=== PATIENT | male | born 1955 | race Caucasian/White ===

== ENCOUNTER 2025-04-29 11:24 | Emergency (ER) | payer MEDICARE ==
--- NOTE | 2025-04-29 12:31 | ED ---
General Adult HPI - General Chief complaint: Recheck/Abnormal Lab/Rx Stated complaint: Fall-AMS,Dizziness Time Seen by Provider: 04/29/25 11:59 Source: patient Mode of arrival: ambulatory Limitations: no limitations - History of Present Illness Initial comments: Patient is a 69-year-old gentleman past medical history CAD presenting today for generalized weakness. Patient states that [place] on [place] and states he was out in the heat all day without drinking water from Friday to Friday. He began having shaking chills that evening and has had persistent intermittent fevers and chills. He endorses a ssociated generalized weakness. Yesterday Tmax was 102 degrees. He tried to take a cool bath and as his tried to help him out of the bath he required a significant amount of assistance getting out. States he did have 1 fall to the side due to difficulty with balance but did not hit his head. He is currently on Plavix. States also on a cholesterol medication no other medications. Did not take any Tylenol or ibuprofen prior to arrival. Also endorses urine incontinence. Typically has urinary urgency but has never been incontinent before. States earlier today he felt he need to urinate as soon as he got up he lost control of his bladder. He denies any new back injuries or back pain. Denies chest pain or shortness of breath. Endorses a chronic cough but denies any sputum production or hemoptysis. Denies sore throat or nasal congestion. States he has had darkening urine. Denies chest or abdominal pain. Denies changes in vision, focal numbness or weakness, slurred speech or difficulty swallowing. Endorses morning headaches and dizziness over the last 4 days but states these only headaches he has had in the past. Dizziness is described as difficulty with balance. Last night states he had what he would describe hallucinations, stating while he was sitting in the dark he saw someone walking across the room. Denies history of family disorder. - Related Data Home Medications Medication Instructions Recorded Confirmed ALPRAZolam [Xanax] 0.5 mg PO DAILY PRN 04/29/25 04/29/25 Clopidogrel [Plavix] 75 mg PO DAILY 04/29/25 04/29/25 DULoxetine HCL [Cymbalta] 60 mg PO DAILY 04/29/25 04/29/25 Fluticasone Furoate [Arnuity 1 puff INHALATION RT-DAILY 04/29/25 04/29/25 Ellipta] Rosuvastatin Calcium [Crestor] 40 mg PO DAILY 04/29/25 04/29/25 Previous Rx's Medication Instructions Recorded hydrOXYzine HCL 25 mg PO HS PRN #3 tab 04/29/25 Allergies Allergy/AdvReac Type Severity Reaction Status Date / Time No Known Allergies Allergy Verified 04/29/25 15:25 Review of Systems ROS Statement: Those systems with pertinent positive or pertinent negative responses have been documented in the HPI. ROS Other: All systems not noted in ROS Statement are negative. Past Medical History Past Medical History: Hyperlipidemia Past Surgical History: Heart Catheterization With Stent Past Psychological History: Anxiety, Depression Smoking Status: Never smoker Past Alcohol Use History: Rare Past Drug Use History: None Reported General Exam - General Exam Comments Initial Comments: PE: CONSTITUTIONAL: [no apparent distress, well appearing] SKIN: [warm, dry, no jaundice, hives or petechiae] EYES:[ pupils are equally round, extraocular movements intact without nystagmus, clear conjunctiva, non-icteric sclera] HENT: [normocephalic, atraumatic, moist mucus membranes, oropharynx clear without exudates, tympanic membranes pearly capone, no lymphadenopathy] NECK: , [Full range of motion, normal appearance] PULMONARY: [clear to auscultation without wheezes, rhonchi, or rales, normal excursion, no accessory muscle use and no stridor] CARDIOVASCULAR:[ regular rate, rhythm, normal S1 and S2. No appreciated murmurs, rubs or gallops. Strong radial pulses with intact distal perfusion. No lower extremity edema] GASTROINTESTINAL: [soft, active bowel sounds throughout, non-tender, non- distended, no palpable masses, no rebound or guarding. No hepatosplenomegaly] GENITOURINARY: MUSCULOSKELETAL: [Extremities have no gross deformity, no edema, redness, or swelling. No calf swelling ] NEUROLOGIC: [_a/o x 3, GCS 15, normal mentation and speech. Moves all extrem ities x 4 without motor or sensory deficit], cranial nerves: II (visual gilbert without defects), III, IV and (extraocular movements are intact, pupils are equal with normal reaction to light), V (intact facial sensation and jaw opening), VII (no facial droop), IX and X (normal palate movement, midline uvula, normal voice), XI (symmetrical shoulder shrug and lateral head rotation against resistance), XII (midline tongue protrusion). Motor strength is 5/5 in all extremities. No abnormal movements. Normal muscle tone. Sensation to light touch is intact bilaterally. No cerebellar signs ([id number], [id number], and rapid alternating movements are normal) PSYCHIATRIC:[ _normal mood and affect, thought process is clear and linear] Limitations: no limitations Course Vital Signs 04/29/25 04/29/25 04/29/25 11:35 12:36 13:51 Temperature 98.5 F 100.3 F H 99 F Pulse Rate 95 78 Respiratory 22 20 Rate Blood Pressure 152/91 140/93 O2 Sat by Pulse 98 95 Oximetry 04/29/25 04/29/25 04/29/25 15:34 17:08 18:34 Temperature 98.6 F 100 F H Pulse Rate 73 76 Respiratory 18 18 Rate Blood Pressure 135/75 145/86 O2 Sat by Pulse 95 99 Oximetry 04/29/25 04/29/25 04/29/25 19:10 19:57 20:38 Temperature 98.8 F 100.5 F H Pulse Rate 111 H Respiratory 18 Rate Blood Pressure 154/78 O2 Sat by Pulse 93 L 97 Oximetry 04/29/25 20:48 Temperature 97.8 F Pulse Rate 77 Respiratory 17 Rate Blood Pressure 129/88 O2 Sat by Pulse 97 Oximetry EKG Findings - EKG Comments: EKG Findings:: Sinus rhythm, rate 90 bpm, intervals within acceptable limits, borderline left axis deviation, no significant ST elevations or depressions, no arrhythmia Medical Decision Making - Medical Decision Making Was pt. sent in by a medical professional or institution (, PA, GLOVE PRINTER, urgent care, hospital, or senior living...) When possible be specific @ -[No] Did you speak to anyone other than the patient for history (EMS, parent, family, police, friend...)? What history was obtained from this source @ -[No] Did you review nursing and triage notes (agree or disagree)? Why? @ -[I reviewed nursing and triage notes] Were old charts reviewed (outside hosp., previous admission, EMS record, old EKG, old radiological studies, urgent care reports/EKG's, senior living records)? Report findings @ -[Medical records reviewed] Differential Diagnosis (chest pain, altered mental status, abdominal pain women, abdominal pain men, vaginal bleeding, weakness, fever, dyspnea, syncope, headache, dizziness, GI bleed, back pain, seizure, CVA, palpatations, mental health, musculoskeletal)? @ -[not applicable] EKG interpreted by me (3pts min.). @ -[As above] X-rays interpreted by me (1pt min.). @ -[None done] CT interpreted by me (1pt min.). @ -[None done] U/S interpreted by me (1pt. min.). @ -[None done] What testing was considered but not performed or refused? (CT, X-rays, U/S, labs)? Why? @ -[None] What meds were considered but not given or refused? Why? @ -[None] Did you discuss the management of the patient with other professionals (professionals i.e. , PA, GLOVE PRINTER, lab, RT, psych nurse, social director, senior application security consultant, teacher, commercial loan officer, caser)? Give summary @ -[No] Was smoking cessation discussed for >3mins.? @ -[No] Was critical care preformed (if so, how long)? @ -[No] Were there social determinants of health that impacted care today? How? (Homelessness, low income, unemployed, alcoholism, drug addiction, pryor sportation, low edu. Level, literacy, decrease access to med. care, penitentiary, rehab)? @ -[No] Was there de-escalation of care discussed even if they declined (Discuss DNR or withdrawal of care, Hospice)? @ -[No] What co-morbidities impacted this encounter? (DM, HTN, Smoking, COPD, CAD, Cancer, CVA, ARF, Chemo, Hep., AIDS, mental health diagnosis, sleep apnea, morbid obesity)? @CAD Was patient admitted / discharged? Hospital course, mention meds given and route, prescriptions, significant lab abnormalities, going to OR and other pertinent info. @ -[hospital course] patient is a 69-year-old gentleman with a past medical history of CAD presenting today for generalized weakness, fevers, headaches, dizziness for 4 days after working out in the sun for 2 days without much water intake.Vital signs on arrival show an oral temp of 98.5 degrees, rate 95, respiratory rate 22, blood pressure 150/91 pulse ox 98%. On my assessment I did repeat an oral temperature which was 100.3 degrees. Otherwise physical exam unremarkable. No focal neurologic deficits and no cerebellar signs. Will obtain CT brain, sepsis workup, administer Rocephin out of concern that source could potentially be urine, CK, troponin, magnesium, Phos, TSH and Cepheid panel. Patient will receive 1 L IV fluids and Tylenol. Labs were initially markable for mild elevation in AST/ALT, no elevation in T. bili. He has no right upper quadrant tenderness to palpation. CK 3-66. Troponin 0.028. Patient endorsed vast improvement in symptoms. I did discuss with him elevated CK, mild hyponatremia, unknown cause for fever and discussed plan for admission. Patient preferred discharge home. Ultimately we decided to give additional 8 L IV fluids and recheck labs. If labs continue to improve he will be discharged. Repeat labs showed mild improvement in LFTs, CK did downtrend. He has no PABLITO. On reassessment he did have return of his fever he will be given a dose of a small dose of Tylenol. He continues to wish to be d ischarged. Undiagnosed new problem with uncertain prognosis? @ -[No] Drug Therapy requiring intensive monitoring for toxicity (Heparin, Nitro, Insulin, Cardizem)? @ -[No] Were any procedures done? @ -[No] Diagnosis/symptom? @ -[default] Acute, or Chronic, or Acute on Chronic? @ -[default] Uncomplicated (without systemic symptoms) or Complicated (systemic symptoms)? @ -[default] Side effects of treatment? @ -[No] Exacerbation, Progression, or Severe Exacerbation? @ -[No] Poses a threat to life or bodily function? How? (Chest pain, [place], [place], pneumonia, PE, COPD, DKA, ARF, appy, cholecystitis, CVA, Diverticulitis, Homicidal, Suicidal, threat to staff... and all critical care pts) @ -[No] - Lab Data Result diagrams: 04/29/25 12:48 04/29/25 16:32 Lab Results 04/29/25 04/29/25 04/29/25 Range/Units 12:48 12:48 12:48 WBC 7.54 (4.50-10.00) 10*3/uL RBC 4.31 L (4.40-5.60) 10*6/uL Hgb 15.1 (13.0-17.0) g/dL Hct 40.7 (39.6-50.0) % MCV 94.4 (80.0-97.0) fL MCH 35.0 H (27.0-32.0) pg MCHC 37.1 H (32.0-37.0) g/dL Plt Count 106 L (140-440) 10*3/uL MPV 9.5 (9.5-12.2) fL Immature Gran % (Auto) 0.3 % Neutrophils % 86.9 % Lymphocytes % 6.2 % Monocytes % 6.2 % Eosinophils % 0.0 % Basophils % 0.4 % Immature Gran # 0.02 (0.00-0.04) 10*3/uL Neutrophils # 6.55 (1.80-7.70) 10*3/uL Lymphocytes # 0.47 L (0.90-5.00) 10*3/uL Monocytes # 0.47 (0.20-1.00) 10*3/uL Eosinophils # 0.00 L (0.04-0.35) 10*3/uL Basophils # 0.03 (0.00-0.10) 10*3/uL PT 12.2 (10.0-12.5) sec INR 1.1 (<1.2) APTT 23.8 (22.0-30.0) sec Sodium 128 L (137-145) mmol/L Potassium 4.3 (3.5-5.1) mmol/L Chloride 95 L (98-107) mmol/L Carbon Dioxide 24 (22-30) mmol/L Anion Gap 9 mmol/L BUN 17 (9-20) mg/dL Creatinine 0.88 (0.66-1.25) mg/dL Est GFR (CKD-EPI)AfAm >90 (>60 ml/min/1.73 sqM) Est GFR (CKD-EPI)NonAf 88 (>60 ml/min/1.73 sqM) Glucose 121 H (74-99) mg/dL POC Glucose (mg/dL) (70-110) mg/dL POC Glu Dependency Counselor ID Plasma Lactic Acid Gino (0.7-2.0) mmol/L Calcium 8.6 (8.4-10.2) mg/dL Phosphorus 3.3 (2.5-4.5) mg/dL Magnesium 1.9 (1.6-2.3) mg/dL Total Bilirubin 1.3 (0.2-1.3) mg/dL AST 95 H (17-59) U/L ALT 68 H (4-49) U/L Alkaline Phosphatase 77 (38-126) U/L Creatine Kinase 366 H (55-170) U/L Troponin I (0.000-0.034) ng/mL Total Protein 6.8 (6.3-8.2) g/dL Albumin 4.2 (3.5-5.0) g/dL TSH 0.567 (0.465-4.680) mIU/L Urine Color Urine Appearance (Clear) Urine pH (5.0-8.0) Ur Specific [place] (1.001-1.035) Urine Protein (Negative) Urine Glucose (UA) (Negative) Urine Ketones (Negative) Urine Blood (Negative) Urine Nitrite (Negative) Urine Bilirubin (Negative) Urine Urobilinogen (<2.0) mg/dL Ur Leukocyte Esterase (Negative) Urine RBC (0-5) /hpf Urine WBC (0-5) /hpf Ur Squamous Epith Cells (0-4) /hpf Urine Mucus (None) /hpf Influenza Type A (PCR) (Not Detectd) Influenza Type B (PCR) (Not Detectd) RSV (PCR) (Not Detectd) SARS-CoV-2 (PCR) (Not Detectd) 04/29/25 04/29/25 04/29/25 Range/Units 12:48 12:48 12:48 WBC (4.50-10.00) 10*3/uL RBC (4.40-5.60) 10*6/uL Hgb (13.0-17.0) g/dL Hct (39.6-50.0) % MCV (80.0-97.0) fL MCH (27.0-32.0) pg MCHC (32.0-37.0) g/dL Plt Count (140-440) 10*3/uL MPV (9.5-12.2) fL Immature Gran % (Auto) % Neutrophils % % Lymphocytes % % Monocytes % % Eosinophils % % Basophils % % Immature Gran # (0.00-0.04) 10*3/uL Neutrophils # (1.80-7.70) 10*3/uL Lymphocytes # (0.90-5.00) 10*3/uL Monocytes # (0.20-1.00) 10*3/uL Eosinophils # (0.04-0.35) 10*3/uL Basophils # (0.00-0.10) 10*3/uL PT (10.0-12.5) sec INR (<1.2) APTT (22.0-30.0) sec Sodium (137-145) mmol/L Potassium (3.5-5.1) mmol/L Chloride (98-107) mmol/L Carbon Dioxide (22-30) mmol/L Anion Gap mmol/L BUN (9-20) mg/dL Creatinine (0.66-1.25) mg/dL Est GFR (CKD-EPI)AfAm (>60 ml/min/1.73 sqM) Est GFR (CKD-EPI)NonAf (>60 ml/min/1.73 sqM) Glucose (74-99) mg/dL POC Glucose (mg/dL) (70-110) mg/dL POC Glu Dependency Counselor ID Plasma Lactic Acid Gino 1.3 (0.7-2.0) mmol/L Calcium (8.4-10.2) mg/dL Phosphorus (2.5-4.5) mg/dL Magnesium (1.6-2.3) mg/dL Total Bilirubin (0.2-1.3) mg/dL AST (17-59) U/L ALT (4-49) U/L Alkaline Phosphatase (38-126) U/L Creatine Kinase (55-170) U/L Troponin I 0.028 (0.000-0.034) ng/mL Total Protein (6.3-8.2) g/dL Albumin (3.5-5.0) g/dL TSH (0.465-4.680) mIU/L Urine Color Urine Appearance (Clear) Urine pH (5.0-8.0) Ur Specific [place] (1.001-1.035) Urine Protein (Negative) Urine Glucose (UA) (Negative) Urine Ketones (Negative) Urine Blood (Negative) Urine Nitrite (Negative) Urine Bilirubin (Negative) Urine Urobilinogen (<2.0) mg/dL Ur Leukocyte Esterase (Negative) Urine RBC (0-5) /hpf Urine WBC (0-5) /hpf Ur Squamous Epith Cells (0-4) /hpf Urine Mucus (None) /hpf Influenza Type A (PCR) Not Detected (Not Detectd) Influenza Type B (PCR) Not Detected (Not Detectd) RSV (PCR) Not Detected (Not Detectd) SARS-CoV-2 (PCR) Not Detected (Not Detectd) 04/29/25 04/29/25 04/29/25 Range/Units 12:49 13:56 16:32 WBC (4.50-10.00) 10*3/uL RBC (4.40-5.60) 10*6/uL Hgb (13.0-17.0) g/dL Hct (39.6-50.0) % MCV (80.0-97.0) fL MCH (27.0-32.0) pg MCHC (32.0-37.0) g/dL Plt Count (140-440) 10*3/uL MPV (9.5-12.2) fL Immature Gran % (Auto) % Neutrophils % % Lymphocytes % % Monocytes % % Eosinophils % % Basophils % % Immature Gran # (0.00-0.04) 10*3/uL Neutrophils # (1.80-7.70) 10*3/uL Lymphocytes # (0.90-5.00) 10*3/uL Monocytes # (0.20-1.00) 10*3/uL Eosinophils # (0.04-0.35) 10*3/uL Basophils # (0.00-0.10) 10*3/uL PT (10.0-12.5) sec INR (<1.2) APTT (22.0-30.0) sec Sodium 135 L (137-145) mmol/L Potassium 3.6 (3.5-5.1) mmol/L Chloride 102 (98-107) mmol/L Carbon Dioxide 25 (22-30) mmol/L Anion Gap 8 mmol/L BUN 15 (9-20) mg/dL Creatinine 0.85 (0.66-1.25) mg/dL Est GFR (CKD-EPI)AfAm >90 (>60 ml/min/1.73 sqM) Est GFR (CKD-EPI)NonAf 89 (>60 ml/min/1.73 sqM) Glucose 119 H (74-99) mg/dL POC Glucose (mg/dL) 130 H (70-110) mg/dL POC Glu Dependency Counselor ID Arelis Fountain Plasma Lactic Acid Gino (0.7-2.0) mmol/L Calcium 8.2 L (8.4-10.2) mg/dL Phosphorus (2.5-4.5) mg/dL Magnesium (1.6-2.3) mg/dL Total Bilirubin 0.8 (0.2-1.3) mg/dL AST 84 H (17-59) U/L ALT 65 H (4-49) U/L Alkaline Phosphatase 70 (38-126) U/L Creatine Kinase (55-170) U/L Troponin I (0.000-0.034) ng/mL Total Protein 6.0 L (6.3-8.2) g/dL Albumin 3.6 (3.5-5.0) g/dL TSH (0.465-4.680) mIU/L Urine Color Light Yellow Urine Appearance Clear (Clear) Urine pH 6.0 (5.0-8.0) Ur Specific [place] 1.012 (1.001-1.035) Urine Protein Trace H (Negative) Urine Glucose (UA) Negative (Negative) Urine Ketones 1+ H (Negative) Urine Blood Small H (Negative) Urine Nitrite Negative (Negative) Urine Bilirubin Negative (Negative) Urine Urobilinogen <2.0 (<2.0) mg/dL Ur Leukocyte Esterase Negative (Negative) Urine RBC 2 (0-5) /hpf Urine WBC <1 (0-5) /hpf Ur Squamous Epith Cells <1 (0-4) /hpf Urine Mucus Rare H (None) /hpf Influenza Type A (PCR) (Not Detectd) Influenza Type B (PCR) (Not Detectd) RSV (PCR) (Not Detectd) SARS-CoV-2 (PCR) (Not Detectd) 04/29/25 04/29/25 Range/Units 16:32 16:32 WBC (4.50-10.00) 10*3/uL RBC (4.40-5.60) 10*6/uL Hgb (13.0-17.0) g/dL Hct (39.6-50.0) % MCV (80.0-97.0) fL MCH (27.0-32.0) pg MCHC (32.0-37.0) g/dL Plt Count (140-440) 10*3/uL MPV (9.5-12.2) fL Immature Gran % (Auto) % Neutrophils % % Lymphocytes % % Monocytes % % Eosinophils % % Basophils % % Immature Gran # (0.00-0.04) 10*3/uL Neutrophils # (1.80-7.70) 10*3/uL Lymphocytes # (0.90-5.00) 10*3/uL Monocytes # (0.20-1.00) 10*3/uL Eosinophils # (0.04-0.35) 10*3/uL Basophils # (0.00-0.10) 10*3/uL PT (10.0-12.5) sec INR (<1.2) APTT (22.0-30.0) sec Sodium (137-145) mmol/L Potassium (3.5-5.1) mmol/L Chloride (98-107) mmol/L Carbon Dioxide (22-30) mmol/L Anion Gap mmol/L BUN (9-20) mg/dL Creatinine (0.66-1.25) mg/dL Est GFR (CKD-EPI)AfAm (>60 ml/min/1.73 sqM) Est GFR (CKD-EPI)NonAf (>60 ml/min/1.73 sqM) Glucose (74-99) mg/dL POC Glucose (mg/dL) (70-110) mg/dL POC Glu Dependency Counselor ID Plasma Lactic Acid Gino (0.7-2.0) mmol/L Calcium (8.4-10.2) mg/dL Phosphorus (2.5-4.5) mg/dL Magnesium (1.6-2.3) mg/dL Total Bilirubin (0.2-1.3) mg/dL AST (17-59) U/L ALT (4-49) U/L Alkaline Phosphatase (38-126) U/L Creatine Kinase 305 H (55-170) U/L Troponin I 0.031 (0.000-0.034) ng/mL Total Protein (6.3-8.2) g/dL Albumin (3.5-5.0) g/dL TSH (0.465-4.680) mIU/L Urine Color Urine Appearance (Clear) Urine pH (5.0-8.0) Ur Specific [place] (1.001-1.035) Urine Protein (Negative) Urine Glucose (UA) (Negative) Urine Ketones (Negative) Urine Blood (Negative) Urine Nitrite (Negative) Urine Bilirubin (Negative) Urine Urobilinogen (<2.0) mg/dL Ur Leukocyte Esterase (Negative) Urine RBC (0-5) /hpf Urine WBC (0-5) /hpf Ur Squamous Epith Cells (0-4) /hpf Urine Mucus (None) /hpf Influenza Type A (PCR) (Not Detectd) Influenza Type B (PCR) (Not Detectd) RSV (PCR) (Not Detectd) SARS-CoV-2 (PCR) (Not Detectd) Disposition Clinical Impression: Fever, Dehydration, Elevated LFTs Disposition: HOME SELF-CARE Condition: Stable Instructions (If sedation given, give patient instructions): Acetaminophen (By mouth), Dehydration (ED), Fever in Adults (ED) Additional Instructions: Every disease is a spectrum and a small chance still exists that a serious condition could develop, for this reason, please monitor yourself closely for new, changing or worsening symptoms, symptoms that persist beyond 48 hours, fever beyond another 48 hours, return of symptoms or hallucinations, chest pain, difficulty in breathing, darkening urine, no urine output for greater than 9 hours, confusion inability to tolerate/keep down fluids or your medications, inability to follow up with outpatient providers as instructed and should you experience these symptoms or should you have any further concerns for your wellbeing please return to the ED or call 911 immediately. You may take 1000 mg of Tylenol every 6 hours as needed for fever. Please do not take greater than 4 doses or 4000 mg in 24 hours. You may trial provided hydroxyzine for difficulty sleeping. If this does not help your symptoms or makes them worse please stop taking. Please follow-up with your doctor as soon as possible, preferably within the next 1 to 3 days, if not within the next week for recheck of your urine and labs. PLEASE call your primary care physician as soon as possible to arrange / discuss plan for followup appointment. Appointment in the next 1-3 days is strongly encouraged if possible. PLEASE let us know here before you leave if there is anything further we can do to be of any assistance. Take care and feel Better! Prescriptions: hydrOXYzine HCL 25 mg PO HS PRN #3 tab PRN Reason: Insomnia Is patient prescribed a controlled substance at d/c from ED?: No Referrals: Nonstaff,Physician [Primary Care Provider] - 1-2 days
[2025-04-29] MEDS: LACTATED RINGERS 1,000 ML IV ONE (12:49)
[2025-04-29 12:50] LABS: Glucose,Whole Blood 130 mg/dL (70-110)
[2025-04-29] MEDS: ACETAMINOPHEN TAB 500 MG TAB PO STA (12:54)
[2025-04-29 13:15] LABS: Basophils # (A) 0.03 10*3/uL (0.00-0.10); Basophils % (A) 0.4 %; Eosinophils # (A) 0.00 10*3/uL (0.04-0.35); Eosinophils % (A) 0.0 %; HCT 40.7 % (39.6-50.0); HGB 15.1 g/dL (13.0-17.0); Lymphocytes # (A) 0.47 10*3/uL (0.90-5.00); Lymphocytes % (A) 6.2 %; MCH 35.0 pg (27.0-32.0); MCHC 37.1 g/dL (32.0-37.0); MCV 94.4 fL (80.0-97.0); Monocytes # (A) 0.47 10*3/uL (0.20-1.00); Monocytes % (A) 6.2 %; Neutrophils # (A) 6.55 10*3/uL (1.80-7.70); Neutrophils % (A) 86.9 %; Platelet Count 106 10*3/uL (140-440); RBC 4.31 10*6/uL (4.40-5.60); RDW 11.9 % (11.5-14.5); WBC 7.54 10*3/uL (4.50-10.00)
[2025-04-29 13:25] LABS: INR 1.1 (<1.2); Partial Thromboplastin Time 23.8 sec (22.0-30.0); Prothrombin Time 12.2 sec (10.0-12.5)
[2025-04-29 13:34] LABS: ALT 68 U/L (4-49); African American GFR (CKD) >90 (>60 ml/min/1.73 sqM); Anion Gap 9 mmol/L; Blood Urea Nitrogen 17 mg/dL (9-20); Calcium 8.6 mg/dL (8.4-10.2); Carbon Dioxide 24 mmol/L (22-30); Chloride 95 mmol/L (98-107); Creatine Kinase 366 U/L (55-170); Glucose 121 mg/dL (74-99); Magnesium 1.9 mg/dL (1.6-2.3); Non-African American GFR(CKD) 88 (>60 ml/min/1.73 sqM); Sodium 128 mmol/L (137-145); Total Protein 6.8 g/dL (6.3-8.2)
--- NOTE | 2025-04-29 13:43 | XR ---
EXAMINATION TYPE: XR chest 2V DATE OF EXAM: 04/29/2025 1:31 PM COMPARISON: None. CLINICAL INDICATION: Male, 69 years old with history of Weakness, TECHNIQUE: XR chest 2V view(s) obtained. FINDINGS: The heart size is normal. The pulmonary vasculature is normal. The lungs are clear. IMPRESSION: 1. No acute pulmonary process. [facility], , 04/29/2025 1:40 PM
[2025-04-29] MEDS: cefTRIAXone IN SWFI 1,000 MG/10 ML SYRINGE IVP STA (13:48)
[2025-04-29 13:54] LABS: RSV Not Detected (Not Detectd)
--- NOTE | 2025-04-29 13:57 | CT ---
EXAMINATION TYPE: CT brain wo con CT DLP: 1127.4 mGycm, Automated exposure control for dose reduction was used. DATE OF EXAM: 04/29/2025 1:50 PM COMPARISON: None. CLINICAL INDICATION:Male, 69 years old with history of Weakness, balance prob. fever, heat exhaustion /confusion TECHNIQUE: Brain: Multiple axial CT images of the brain were obtained without IV contrast. . Coronal and sagitta l reformats reviewed. FINDINGS: Brain: Extra-axial spaces: No abnormal extra-axial fluid collections. Ventricular system: Within normal limits Cerebral parenchyma: No acute intraparenchymal hemorrhage or mass effect. The capone-white junction is well differentiated. Scattered hypoattenuating areas are seen within the periventricular white matte r. Partial empty sella morphology. Cerebellum: Unremarkable. Mass effect: No evidence of midline shift. Intracranial vasculature: Atherosclerotic calcifications of the intracranial vessels. Soft tissues: Normal. Calvarium/osseous structures: No depressed skull fracture. Paranasal sinuses and mastoid air cells: Mastoid air cells are clear. Mild mucosal thickening of the inferior bilateral maxillary sinuses with left greater than right. The remaining paranasal sinuses ar e clear. Visualized orbits: Orbital contents are intact. IMPRESSION: 1. No acute intracranial process. 2. Nonspecific white matter changes, likely secondary to chronic small vessel ischemic disease. [facility], , 04/29/2025 1:54 PM
[2025-04-29 14:05] LABS: AST 95 U/L (17-59); Alkaline Phosphatase 77 U/L (38-126); Potassium 4.3 mmol/L (3.5-5.1)
[2025-04-29 14:06] LABS: Albumin 4.2 g/dL (3.5-5.0)
[2025-04-29 14:34] LABS: Bilirubin,Urine Negative (Negative); Blood,Urine Small (Negative); Color,Urine Light Yellow; Glucose,Urine (UA) Negative (Negative); Ketones,Urine 1+ (Negative); Leukocyte Esterase,Urine Negative (Negative); Mucus,Urine Rare /hpf; Nitrite,Urine Negative (Negative); PH, Urine 6.0 (5.0-8.0); Protein,Urine Trace (Negative); RBC,Urine 2 /hpf (0-5); Specific Gravity,Urine 1.012 (1.001-1.035); Squamous Epithelial Cell,Urine <1 /hpf (0-4); Urobilinogen,Urine <2.0 mg/dL (<2.0); WBC,Urine <1 /hpf (0-5)
[2025-04-29] MEDS: SODIUM CHLORIDE 0.9% 500 ML 500 ML IV ONE ×2 (14:59→15:33)
[2025-04-29 16:57] LABS: ALT 65 U/L (4-49); AST 84 U/L (17-59); African American GFR (CKD) >90 (>60 ml/min/1.73 sqM); Albumin 3.6 g/dL (3.5-5.0); Alkaline Phosphatase 70 U/L (38-126); Anion Gap 8 mmol/L; Blood Urea Nitrogen 15 mg/dL (9-20); Calcium 8.2 mg/dL (8.4-10.2); Carbon Dioxide 25 mmol/L (22-30); Chloride 102 mmol/L (98-107); Glucose 119 mg/dL (74-99); Non-African American GFR(CKD) 89 (>60 ml/min/1.73 sqM); Potassium 3.6 mmol/L (3.5-5.1); Sodium 135 mmol/L (137-145); Total Protein 6.0 g/dL (6.3-8.2)
[2025-04-29] MEDS: ONDANSETRON 4 MG/2 ML VIAL IVP STA (18:40)
[2025-04-29] MEDS: ACETAMINOPHEN TAB 325 MG TAB PO STA (18:56)
[2025-04-29] MEDS: ONDANSETRON 4 MG ODT STARTER PACK TAB BTL PO STA (18:57)
[2025-04-29] MEDS: IPRATROPIUM-ALBUTEROL 3 ML NEB INHALATION STA (19:54)
--- NOTE | 2025-04-29 20:34 | CT ---
EXAMINATION TYPE: CT chest angio for PE DATE OF EXAM: 04/29/2025 8:19 PM COMPARISON: None. CLINICAL INDICATION: Male, 69 years old with history of low grade fever, hypoxia, normal CXR, hypoxia , TECHNIQUE: Axial CT was performed with sagittal and coronal reformats. 3D reconstruction and/or MIP imaging was also performed on a separate workstation. IV CONTRAST: with IV Contrast, patient injected with 100 mL of . (None if empty) CT DLP: 287.2 mGycm, Automated exposure control for dose reduction was used. FINDINGS: PULMONARY ARTERIES: The timing of the contrast bolus is less than ideal and therefore small distal a nd peripheral emboli would be difficult to exclude. No gross large central embolus seen at this time. LUNGS: The lungs are clear and free of infiltrate. No evidence for atelectasis. No pulmonary nodule or mass is detected. No pleural effusion. MEDIASTINUM: Thoracic aorta is of normal caliber,however, evaluation is limited given timing of the contrast bolus. If there is concern for thoracic aortic pathology consider STEVEN. Correlate clinicall y. No evidence for mediastinal mass. No mediastinal lymph nodes greater than 1cm. HEART: Size within normal limits. No significant coronary artery calcifications. HILAR STRUCTURES: No evidence for mass. No hilar lymph nodes greater than 1 cm. UPPER ABDOMEN: No significant abnormality is seen. IMPRESSION: 1. The timing of the contrast bolus is less than ideal and therefore small distal and peripheral emb david would be difficult to exclude. No gross large central embolus seen at this time. [facility], , 04/29/2025 8:31 PM
[2025-04-29 20:49] VITALS: BP 129/88; PULSE 77; RESP 17; TEMP 97.8
== END 2025-04-29 20:54 | disposition home or self-care (01) ==
LOC: EC 11:24
DX: R50.9 Fever, unspecified (principal); E86.0 Dehydration; R79.89 Other specified abnormal findings of blood chemistry; I25.10 Atherosclerotic heart disease of native coronary artery without angina pectoris; W19.XXXA Unspecified fall, initial encounter
CPT/HCPCS: 36415; 93005; 80053; 82550; 83605; 83735; 84100; 84443; 84484; 85025; 85610; 85730; 81001; 87040; 87636; 71046; 70450; 71275; 99285; 96374; 96375; 96361; J2405; J0696; S0119; Q9967